=== PATIENT | male | born 1955 | race Caucasian/White ===

== ENCOUNTER 2018-10-25 14:12 | Observation (INO) | payer OTHER ==
[2018-10-25] MEDS ORDERED: methylPREDNISolone SOD SUCCI 125 MG/2 ML VIAL IV STA (14:14)
[2018-10-25] MEDS ORDERED: IPRATROPIUM-ALBUTEROL 3 ML NEB INHALATION STA (14:14)
--- NOTE | 2018-10-25 14:23 | ED ---
General Adult HPI - General Chief complaint: Shortness of Breath Stated complaint: Sob Time Seen by Provider: 10/25/18 14:14 Source: patient, EMS, RN notes reviewed Mode of arrival: EMS Limitations: no limitations - History of Present Illness Initial comments: Patient is a pleasant 63-year-old male presenting to the emergency Department with dyspnea. Symptoms have progressively the past several days. Patient is at [facility] for alcohol treatment. Patient has been without his oxygen for a few days. Patient does have dyspnea consistent with previous COPD. Patient does have occasional nonproductive cough. No fevers. No chest pain. No leg p ain or leg swelling. - Related Data Home Medications Medication Instructions Recorded Confirmed Acetaminophen [Tylenol 8 Hour] 650 mg PO Q4H PRN 10/25/18 10/25/18 Atorvastatin [Lipitor] 20 mg PO DAILY 10/25/18 10/25/18 Chlorpheniramine Maleate 4 mg PO Q4H PRN 10/25/18 10/25/18 [Chlor-Trimeton] Escitalopram [Lexapro] 20 mg PO DAILY 10/25/18 10/25/18 Folic Acid 1 mg PO DAILY 10/25/18 10/25/18 Ibuprofen [Motrin] 600 mg PO Q6H PRN 10/25/18 10/25/18 Loperamide [Imodium] 4 mg PO QID PRN 10/25/18 10/25/18 Magnesium Oxide [Mag-Ox] 400 mg PO DAILY 10/25/18 10/25/18 Metoprolol Succinate [Toprol Xl] 100 mg PO BID 10/25/18 10/25/18 Multivitamins, Thera [Multivitamin 1 tab PO DAILY 10/25/18 10/25/18 (formulary)] Ondansetron HCl [Zofran] 8 mg PO Q6H PRN 10/25/18 10/25/18 Ondansetron [Zofran] 4 mg IM Q6H PRN 10/25/18 10/25/18 Thiamine [Vitamin B-1] 100 mg PO DAILY 10/25/18 10/25/18 Thiamine [Vitamin B-1] 100 mg PO DAILY 10/25/18 10/25/18 Tigan 200mg 200 mg IM Q6H PRN 10/25/18 10/25/18 Tigan 300mg Supp 300 mg RECTAL Q6H PRN 10/25/18 10/25/18 Trimethobenzamide [Tigan] 300 mg PO Q6H PRN 10/25/18 10/25/18 cloNIDine HCL [Catapres] 0.2 mg PO TID 10/25/18 10/25/18 traZODone HCL [Desyrel] 50 - 150 mg PO HS 10/25/18 10/25/18 Allergies Allergy/AdvReac Type Severity Reaction Status Date / Time prednisone Allergy Unknown Verified 10/25/18 14:40 Review of Systems ROS Statement: Those systems with pertinent positive or pertinent negative responses have been documented in the HPI. ROS Other: All systems not noted in ROS Statement are negative. Constitutional: Denies: fever Eyes: Denies: eye pain ENT: Denies: ear pain Respiratory: Reports: as per HPI, cough, dyspnea Cardiovascular: Denies: chest pain Endocrine: Denies: fatigue Gastrointestinal: Denies: abdominal pain Genitourinary: Denies: dysuria Musculoskeletal: Denies: back pain Skin: Denies: rash Neurological: Denies: weakness Past Medical History Past Medical History: COPD, Hypertension History of Any Multi-Drug Resistant Organisms: None Reported Past Surgical History: No Surgical Hx Reported Past Psychological History: No Psychological Hx Reported Smoking Status: Current every day smoker Past Alcohol Use History: Daily Past Drug Use History: None Reported General Exam Limitations: no limitations General appearance: alert, in distress (Mild distress) Head exam: Present: normocephalic Eye exam: Present: normal appearance, PERRL Neck exam: Present: normal inspection Respiratory exam: Present: respiratory distress, accessory muscle use, decreased breath sounds Cardiovascular Exam: Present: regular rate, normal rhythm GI/Abdominal exam: Present: soft. Absent: tenderness Extremities exam: Present: normal inspection. Absent: pedal edema, calf tenderness Neurological exam: Present: alert Psychiatric exam: Present: normal affect, normal mood Skin exam: Present: normal color Course Vital Signs 10/25/18 10/25/18 10/25/18 14:16 14:18 14:33 Temperature 98.9 F Pulse Rate 97 96 Respiratory 26 H 24 Rate Blood Pressure 142/89 O2 Sat by Pulse 100 Oximetry 10/25/18 14:35 Temperature Pulse Rate 96 Respiratory Rate Blood Pressure O2 Sat by Pulse Oximetry - Reevaluation(s) Reevaluation #1: 10/25/18 15:01 Patient does meet sepsis criteria diagnosed at 1500. Blood culture and lactic acid and IV antibiotics ordered. EKG Findings - EKG Comments: EKG Findings:: Normal sinus rhythm 95. TN 126. QRS 88. QT 384. QTC 42. Normal axis. Normal QRS. No acute ST change. Medical Decision Making - Medical Decision Making Patient reevaluated and significantly improved with BiPAP. Patient updated on results and plan. Case was discussed in detail with Dr. Candelaria, covering for hospital call, who will admit. - Lab Data Result diagrams: 10/25/18 14:25 10/25/18 14:25 Lab Results 10/25/18 10/25/18 10/25/18 Range/Units 14:25 14:25 14:25 WBC 16.1 H (3.8-10.6) k/uL RBC 4.00 L (4.30-5.90) m/uL Hgb 12.5 L (13.0-17.5) gm/dL Hct 38.3 L (39.0-53.0) % MCV 95.9 (80.0-100.0) fL MCH 31.3 (25.0-35.0) pg MCHC 32.6 (31.0-37.0) g/dL RDW 14.3 (11.5-15.5) % Plt Count 180 (150-450) k/uL Neutrophils % 88 % Lymphocytes % 5 % Monocytes % 5 % Eosinophils % 2 % Basophils % 0 % Neutrophils # 14.1 H (1.3-7.7) k/uL Lymphocytes # 0.8 L (1.0-4.8) k/uL Monocytes # 0.8 (0-1.0) k/uL Eosinophils # 0.2 (0-0.7) k/uL Basophils # 0.0 (0-0.2) k/uL PT (9.0-12.0) sec INR (<1.2) APTT (22.0-30.0) sec Sodium 140 (137-145) mmol/L Potassium 3.2 L (3.5-5.1) mmol/L Chloride 104 (98-107) mmol/L Carbon Dioxide 24 (22-30) mmol/L Anion Gap 12 mmol/L BUN 9 (9-20) mg/dL Creatinine 0.82 (0.66-1.25) mg/dL Est GFR (CKD-EPI)AfAm >90 (>60 ml/min/1.73 sqM) Est GFR (CKD-EPI)NonAf >90 (>60 ml/min/1.73 sqM) Glucose 97 (74-99) mg/dL Calcium 8.9 (8.4-10.2) mg/dL Total Bilirubin 1.7 H (0.2-1.3) mg/dL AST 22 (17-59) U/L ALT 29 (21-72) U/L Alkaline Phosphatase 101 (38-126) U/L NT-Pro-B Natriuret Pep 5570 pg/mL Total Protein 5.7 L (6.3-8.2) g/dL Albumin 3.2 L (3.5-5.0) g/dL 10/25/18 Range/Units 14:25 WBC (3.8-10.6) k/uL RBC (4.30-5.90) m/uL Hgb (13.0-17.5) gm/dL Hct (39.0-53.0) % MCV (80.0-100.0) fL MCH (25.0-35.0) pg MCHC (31.0-37.0) g/dL RDW (11.5-15.5) % Plt Count (150-450) k/uL Neutrophils % % Lymphocytes % % Monocytes % % Eosinophils % % Basophils % % Neutrophils # (1.3-7.7) k/uL Lymphocytes # (1.0-4.8) k/uL Monocytes # (0-1.0) k/uL Eosinophils # (0-0.7) k/uL Basophils # (0-0.2) k/uL PT 13.0 H (9.0-12.0) sec INR 1.3 H (<1.2) APTT 31.9 H (22.0-30.0) sec Sodium (137-145) mmol/L Potassium (3.5-5.1) mmol/L Chloride (98-107) mmol/L Carbon Dioxide (22-30) mmol/L Anion Gap mmol/L BUN (9-20) mg/dL Creatinine (0.66-1.25) mg/dL Est GFR (CKD-EPI)AfAm (>60 ml/min/1.73 sqM) Est GFR (CKD-EPI)NonAf (>60 ml/min/1.73 sqM) Glucose (74-99) mg/dL Calcium (8.4-10.2) mg/dL Total Bilirubin (0.2-1.3) mg/dL AST (17-59) U/L ALT (21-72) U/L Alkaline Phosphatase (38-126) U/L NT-Pro-B Natriuret Pep pg/mL Total Protein (6.3-8.2) g/dL Albumin (3.5-5.0) g/dL - Radiology Data Radiology results: image reviewed (X-ray shows left lower lobe infiltrate. Small left effusion. Right upper lobe pulmonary mass.) Critical Care Time Critical Care Time: Yes Total Critical Care Time: 33 Disposition Clinical Impression: Acute exacerbation of chronic obstructive airways disease, Pneumonia, Sepsis Disposition: ADMITTED IP TO THIS HOSP Condition: Serious Is patient prescribed a controlled substance at d/c from ED?: No Referrals: None,Stated [Primary Care Provider] - 1-2 days Decision Time: 15:02
--- NOTE | 2018-10-25 14:37 | XR ---
EXAMINATION TYPE: XR chest 1V portable DATE OF EXAM: 10/25/2018 COMPARISON: NONE HISTORY: Shortness of breath TECHNIQUE: Single frontal view of the chest is obtained. FINDINGS: Hyperinflation suggests COPD. There is left-sided infiltrate and pleural effusion. Healing left sided lower rib cage fractures are noted. There is a nodule in the right upper lobe and perihil ar region measuring 1.4 cm. Atherosclerotic change aorta. Irregular density left upper lobe noted pablo aterally with pleural-based thickening. IMPRESSION: 1. COPD with left lower lobe infiltrate and small effusion correlate for pneumonia. 2. Suspicion of a 1.4 cm right upper lobe pulmonary mass recommend CT chest.
[2018-10-25 14:38] LABS: Basophils % (A) 0 %; Eosinophils # (A) 0.2 k/uL (0-0.7); Eosinophils % (A) 2 %; HCT 38.3 % (39.0-53.0); HGB 12.5 gm/dL (13.0-17.5); Lymphocytes # (A) 0.8 k/uL (1.0-4.8); Lymphocytes % (A) 5 %; MCH 31.3 pg (25.0-35.0); MCHC 32.6 g/dL (31.0-37.0); MCV 95.9 fL (80.0-100.0); Mean Platelet Volume 7.2; Monocytes # (A) 0.8 k/uL (0-1.0); Monocytes % (A) 5 %; Neutrophils # (A) 14.1 k/uL (1.3-7.7); Neutrophils % (A) 88 %; Platelet Count 180 k/uL (150-450); RDW 14.3 % (11.5-15.5); WBC 16.1 k/uL (3.8-10.6)
[2018-10-25 14:44] LABS: ALT 29 U/L (21-72); AST 22 U/L (17-59); African American GFR (CKD) >90 (>60 ml/min/1.73 sqM); Albumin 3.2 g/dL (3.5-5.0); Alkaline Phosphatase 101 U/L (38-126); Anion Gap 12 mmol/L; Blood Urea Nitrogen 9 mg/dL (9-20); Calcium 8.9 mg/dL (8.4-10.2); Carbon Dioxide 24 mmol/L (22-30); Chloride 104 mmol/L (98-107); Glucose 97 mg/dL (74-99); INR 1.3 (<1.2); Partial Thromboplastin Time 31.9 sec (22.0-30.0); Sodium 140 mmol/L (137-145); Total Bilirubin 1.7 mg/dL (0.2-1.3); Total Protein 5.7 g/dL (6.3-8.2)
[2018-10-25 14:50] LABS: Potassium 3.2 mmol/L (3.5-5.1)
[2018-10-25] MEDS ORDERED: PNEUMONIA PROTOCOL UTILIZED 1 EACH MISC PO PRN (15:03)
[2018-10-25] MEDS ORDERED: LEVOFLOXACIN 750MG-D5W PMX 750 MG in DEXTROSE/WATER 1 150ML.BAG IVPB STA (15:03)
[2018-10-25] MEDS ORDERED: IPRATROPIUM-ALBUTEROL 3 ML NEB INHALATION PRN (15:03)
[2018-10-25] MEDS ORDERED: PIPERACILLIN-TAZOBACTAM 3.375 GM in SODIUM CHLORIDE 0.9% 100 ML IVPB STA (15:03)
[2018-10-25] MEDS: SODIUM CHLORIDE 0.9% 1,000 ML IV SCH (15:37)
[2018-10-25] MEDS: IPRATROPIUM-ALBUTEROL 3 ML NEB INHALATION SCH ×2 (15:41→18:58)
[2018-10-25 17:43] VITALS: BMI 23.7
[2018-10-25] MEDS: methylPREDNISolone SOD SUCCI 125 MG/2 ML VIAL IV SCH ×2 (18:16→23:38)
[2018-10-25] MEDS ORDERED: ACETAMINOPHEN TAB 325 MG TAB PO PRN (18:57)
[2018-10-25] MEDS ORDERED: ONDANSETRON 4 MG TAB PO PRN (18:57)
[2018-10-25] MEDS ORDERED: traZODone HCL 50 MG TAB PO SCH (21:00)
[2018-10-25] MEDS: cloNIDine HCL 0.2 MG TAB PO SCH (21:17)
[2018-10-25] MEDS: METOPROLOL SUCCINATE (ER) 100 MG TAB.ER.24H PO SCH (21:17)
[2018-10-25] MEDS ORDERED: IBUPROFEN 600 MG TAB PO PRN (21:58)
[2018-10-25] MEDS ORDERED: TIGAN RECTAL PRN (21:58)
[2018-10-25] MEDS ORDERED: LOPERAMIDE 2 MG CAP PO PRN (21:58)
[2018-10-25] MEDS ORDERED: diphenhydrAMINE 25 MG CAP PO PRN (23:00)
[2018-10-25] MEDS: HEPARIN SODIUM,PORCINE 5,000 UNIT/ML 1 ML VIAL SQ SCH (23:39)
[2018-10-25] MEDS: PIPERACILLIN-TAZOBACTAM 3.375 GM in SODIUM CHLORIDE 0.9% 100 ML IVPB SCH (23:39)
[2018-10-26] MEDS ORDERED: TRIMETHOBENZAMIDE 300 MG CAP PO PRN
[2018-10-26] MEDS ORDERED: TRIMETHOBENZAMIDE 100 MG/ML 2 ML VIAL IM PRN
[2018-10-26] MEDS: SODIUM CHLORIDE 0.9% 1,000 ML IV SCH (01:26)
[2018-10-26] MEDS: methylPREDNISolone SOD SUCCI 125 MG/2 ML VIAL IV SCH (05:33)
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
[2018-10-26] MEDS: IPRATROPIUM-ALBUTEROL 3 ML NEB INHALATION SCH ×2 (07:20→12:26)
[2018-10-26 07:30] LABS: Glucose,Whole Blood 197 mg/dL (75-99)
[2018-10-26 07:32] VITALS: BP 115/72; RESP 16; TEMP 97.7
[2018-10-26] MEDS: INSULIN ASPART (NovoLOG) 100 UNIT/ML VIAL SQ SCH ×2 (07:51→12:30)
[2018-10-26] MEDS: PIPERACILLIN-TAZOBACTAM 3.375 GM in SODIUM CHLORIDE 0.9% 100 ML IVPB SCH (07:52)
[2018-10-26] MEDS: HEPARIN SODIUM,PORCINE 5,000 UNIT/ML 1 ML VIAL SQ SCH (08:10)
[2018-10-26] MEDS: cloNIDine HCL 0.2 MG TAB PO SCH (08:10)
[2018-10-26] MEDS: METOPROLOL SUCCINATE (ER) 100 MG TAB.ER.24H PO SCH (08:11)
[2018-10-26] MEDS ORDERED: MAGNESIUM OXIDE 400 MG TAB PO SCH (09:00)
[2018-10-26] MEDS ORDERED: MULTIVITAMINS, THERA 1 EACH TAB PO SCH (09:00)
[2018-10-26] MEDS ORDERED: THIAMINE 100 MG TAB PO SCH ×2 (09:00)
[2018-10-26] MEDS ORDERED: FOLIC ACID 1 MG TAB PO SCH (09:00)
[2018-10-26] MEDS ORDERED: ESCITALOPRAM 20 MG TAB PO SCH (09:00)
[2018-10-26] MEDS ORDERED: ATORVASTATIN 20 MG TAB PO SCH (09:00)
--- NOTE | 2018-10-26 09:40 | XR ---
EXAMINATION TYPE: XR chest 2V DATE OF EXAM: 10/26/2018 COMPARISON: Prior chest x-ray 10/25/2018 HISTORY: Pneumonia TECHNIQUE: Frontal and lateral views of the chest are obtained. FINDINGS: Pleural parenchymal changes are stable compared to prior exam. Volume loss, probable scarr ing again noted in the left lung. There is abnormal density at the left lung base as well as along th e superolateral pleura on the left. Nodular density persists in the right midlung. Prominence of the pulmonary artery could be due to pulmonary artery hypertension. There is blunting the right costophre jimena angle. Tethering of the left pulmonary artery is noted. Heart is small. There is flattening the h emidiaphragms. IMPRESSION: Findings are similar to prior exam. Emphysema. Correlate for possible basilar pneumonia. Right lower lobe lung nodule.
--- NOTE | 2018-10-26 09:59 | CT ---
EXAMINATION TYPE: CT chest wo con DATE OF EXAM: 10/26/2018 COMPARISON: Chest x-ray 10/25/2018 HISTORY: Pneumonia, lung mass CT DLP: 298.6 mGycm, Automated exposure control for dose reduction was used. CONTRAST: None TECHNIQUE: Axial images were obtained at 5 mm thick sections. Reconstructed images ar e reviewed on the computer in the coronal plane. FINDINGS: Portion of the thyroid visualized is normal. There is a consolidation or thickening in the posterior left apex measuring approximately 3.2 x 4.9 c m. Minimal left pleural effusion may be present. There is a small density within the posterior right upper lung field measuring 0.8 x 1.4 cm. Series 2 04 image 14. There is an area of increased density within the periphery of the left midlung measuring 6.4 x 2.4 cm. Series 204 image 19. The areas of scarring within extensive emphysematous changes within the mid lungs bilaterally. There is a 2.2 x 1.6 cm rounded density in the posterior right lower lobe. Series 204 image 42. Some pulmonary fibrosis may be in the posterior lung base. Some consolidation is not excluded within the p osterior left lung base. No enlarged mediastinal or hilar adenopathy is evident. The ascending aorta diameter at the level o f the main pulmonary artery is 3.7 cm. The main pulmonary artery diameter at the bifurcation is 3.0 cm. Mild coronary artery calcification is present. Limited CT sections are obtained through the upper abdomen. At the tail of the pancreas there is a bi lobed slightly hypodense area measuring 6.5 x 4.4 cm. Cyst, pseudocyst, neoplasm are within the diffe rential. Additional workup with contrast CT abdomen and pancreas protocol is recommended. IMPRESSIONS: 1. 2.2 x 1.6 cm posterior peripheral right lower lobe lung nodule. 2. Additional areas of consolidation and/or densities within advanced emphysematous changes. Some und erlying pulmonary fibrosis may also be present. 3. Large bilobed mass within the tail of the pancreas. Neoplasm is not excluded. Additional workup wi th contrast CT abdomen is recommended. A [place] level critical message alert has been initiated for Chloe Contreras via the [employer] System on 10/26/2018 9:56 AM. This message alert has been sent to Chloe Contreras via the p references provided by the clinician for the receipt of Radiology Critical Findings. [place] [id number].
[2018-10-26 11:53] LABS: Glucose,Whole Blood 189 mg/dL (75-99)
--- NOTE | 2018-10-26 11:56 | CONS ---
CONSULTATION PULMONARY/CRITICAL CARE CONSULTATION DATE OF CONSULTATION: October 26, 2018 This is a 63-year-old male whom we were asked to see because of shortness of breath. The patient apparently presents to the emergency room with complaints of shortness of breath. Apparently it had been going on for a couple days prior to admission. The patient was apparently a resident at [facility] for alcohol treatment. He apparently has been without his oxygen for a few days. The patient complains of shortness of breath. A bit of a cough. No phlegm production. Some tightness in his chest. No fever or chills. No chest pain or chest discomfort. The patient apparently does see a upholsterer limousine and hearse in the [facility]. He mentioned his name but I do not recognize the name. The patient states that the doctor has diagnosed him with underlying COPD. When I asked about severity, he is not really able to know how to answer me. He does use oxygen on a regular basis. But again, was not able to tell me how bad he was based on conversations with his upholsterer limousine and hearse. Anyway, currently, the patient does not look bad. He is lying in bed. He has got oxygen in place. Does not appear to have any shortness of breath. Certainly no conversational dyspnea. No use of accessory muscles. No audible wheezing. HOME MEDICATIONS: Home medication include Tylenol, Lipitor, Chlor-Trimeton, Lexapro, folic acid, Motrin, Imodium, Mag-Ox, metoprolol, multivitamins, Zofran, vitamin B1, Tigan, Catapres, Desyrel and albuterol and a nebulizer machine. ALLERGIES: Allergies apparently are PREDNISONE, although he can take IV steroids quite well. He states the PREDNISONE causes mental status changes. PAST MEDICAL HISTORY: His past medical history is positive for chronic pain syndrome, COPD, hypertension, hyperlipidemia, environmental allergies, anxiety and depression, and DJD. SURGICAL HISTORY: Surgical history is negative. SOCIAL HISTORY: Social history is positive for ongoing tobacco use. He smokes on a daily basis. He also drinks alcohol daily. Illicit drug use is denied. FAMILY HISTORY: The patient was not able to tell me much about family history. He suspects that his family history is rather benign in that his mother and father really had no major medical issues. REVIEW OF SYSTEMS: CONSTITUTIONAL: Negative NEUROLOGIC: Negative. HEENT: Negative. CARDIOVASCULAR: Negative. PULMONARY: Shortness of breath, cough, mostly nonproductive, chest congestion, wheezing. GI: Negative. : Negative. RHEUMATOLOGIC: Negative. IMMUNOLOGIC: Negative. ENDOCRINOLOGIC: Negative. DERMATOLOGIC: Negative. PHYSICAL EXAMINATION: VITAL SIGNS: Current vital signs are reviewed. Temperature is 97.7, heart rate 78, respiratory rate 16, blood pressure 115/72, mean 86, 3 L saturation 94%. Appears in no acute distress. HEENT: Examination is grossly unremarkable. Mucous membranes are moist. Nasal O2 noted. NECK: Supple. Full range of motion. No adenopathy. Neck veins are flat. CARDIOVASCULAR: Examination reveals regular rhythm and rate. Heart rate in the mid 80s. S1, S2 normal. No S3, S4, or murmur. LUNGS: Reveal expiratory rhonchi. There are some expiratory wheezes. There is prolongation on forced maneuver. Breath sounds equal bilaterally, but diminished throughout. No crackles. ABDOMEN: Soft. Bowel sounds are heard. EXTREMITIES: Are intact. No cyanosis, clubbing, or edema. SKIN: Without rash. NEUROLOGIC: Examination is nonfocal. He does move all 4 extremities well. LABS: Labs are reviewed. Today's glucose is 197. Liver function test shows a bilirubin of 1.7. Total protein 5.7. Albumin 3.2. Sodium 140, potassium 3.2, chloride 104, CO2 is 24. Anion gap is 12. BUN and creatinine were 9 and 0.82. PT 13, INR 1.3, PTT 31.9. White count 16.1, hemoglobin 12.5. Platelet count normal. X-RAY: Chest x-ray shows some atelectasis or infiltrate in the left lower lobe. In addition, the patient has a lesion in the right upper lobe, 1.4 cm in size. The patient stated that he has had this for more than 20 years or so. That may very well be true. Chest x-ray shows a lesion in the right mid lung and some infiltrate in the left lower lobe. Chest x-ray shows mostly chronic changes, some infiltrate in the left lower lobe and this lesion in the right mid lung. CT scan shows some chronic changes pleurally based in the left mid lung and a pleural- based lesion on the right side. Also, there is some fibrotic changes and honeycomb type changes in the left base. Microbiology is negative. In addition, CT scan shows a bilobed mass within the tail of the pancreas and a CT scan with contrast of the abdomen was recommended. The lesion in the right lung is 2.2 x 1.6 cm in size. Again, the patient states that the lesion has been there for some time, well known to him and well known to his upholsterer limousine and hearse. Medications are reviewed. ASSESSMENT: 1. Chronic obstructive pulmonary disease exacerbation complicated by purulent tracheobronchitis and possible bronchopneumonia left lower lobe. 2. Suspicious mass, right mid lung/right lower lobe, apparently chronic and unchanged. 3. Large bilobed mass within the tail of the pancreas and a CT scan was recommended. 4. History of chronic obstructive pulmonary disease and chronic obstructive pulmonary disease exacerbation. 5. History of chronic tobacco abuse. 6. History of hyperlipidemia. 7. History of hypertension. PLAN: The patient's medications are reviewed. Additional recommendations and suggestions are forthcoming. If in fact the lesion is old, follow up in the office with prior CAT scans would be beneficial. From the pulmonary standpoint, we will adjust the medications accordingly. He should be on short-acting beta agonist, short-acting muscarinic antagonist, long-acting beta agonist, inhaled corticosteroids, and systemic corticosteroids. Oral antibiotic will be fine. Again medications are reviewed. Prognosis is guarded. MMODL / IJN: [id number] /
[2018-10-26] MEDS ORDERED: methylPREDNISolone SOD SUCCI 40 MG/ML 1 ML VIAL IV SCH (12:00)
[2018-10-26 12:28] VITALS: PULSE 88
[2018-10-26] MEDS ORDERED: LEVOFLOXACIN 750MG-D5W PMX 750 MG in DEXTROSE/WATER 1 150ML.BAG IVPB SCH (15:00)
[2018-10-26] MEDS ORDERED: SYMBICORT 160-4.5 MCG INHALER INHALATION SCH (20:00)
[2018-10-26] MEDS ORDERED: AMOXIC-POT CLAV 875-125MG 1 EACH TAB PO SCH (21:00)
--- NOTE | 2018-10-27 01:50 | DS ---
DISCHARGE SUMMARY DATE OF SERVICE: 10/26/2018. FINAL DIAGNOSES: 1. Acute left lower pneumonia possibly gram-negative with possible sepsis and acute hypoxic respiratory failure present on admission. 2. Chronic obstructive pulmonary disease acute exacerbation. 3. Hypokalemia. 4. History of ETOH. 5. History of nicotine dependence. 6. Increased WBC. 7. Anemia of chronic disease. 8. Hypertension. 9. History of pneumonia. 10.History of anxiety, depression. 11.2.2 x 1.6 cm posterior peripheral right lower lobe lung nodule. 12.Post underlying pulmonary fibrosis. 13.Large bilobed mass in the left tail of the pancreas. DISCHARGE DISPOSITION: The patient being discharged in stable condition with guarded prognosis. Patient transferred to [facility] in stable condition with guarded prognosis. Total time taken was 35 minutes. HISTORY OF PRESENT ILLNESS: This 63-year-old gentleman with a past medical history of multiple medical problems was admitted with acute left lower pneumonia with possible sepsis and acute hypoxic respiratory failure. The patient was given BiPAP. Initially, patient was treated with intensive bronchodilators, antibiotics. Patient improved significantly and the patient to be transferred to [facility] to insurance reasons. CT scan showed multiple findings recommend the patient follow up in the outpatient setting. PHYSICAL EXAMINATION: On exam, vitals are stable. Cardiovascular: S1, S2. Respirations: A few scattered rhonchi. ABDOMEN: Soft. NERVOUS SYSTEM: No focal deficits. DISCHARGE ADVICE AND MEDICATIONS: 1. Diet is cardiac diet. 2. Activity limites until followup. MEDICATIONS: 1. Clonidine 0.2 p.o. t.i.d. 2. Chlorpheniramine maleate. 3. Desyrel 50 - 150 mg p.o. q.h.s. 4. Folic acid 1 mg p.o. daily. 5. Imodium 4 mg q.i.d. p.r.n. 6. Lexapro 20 mg p.o. daily. 7. Lipitor 20 mg p.o. daily. 8. Magnesium oxide 400 mg p.o. daily. 9. Motrin 600 mg q.6h p.r.n. 10.Multivitamins 1 p.o. daily. 11.Tigan 300 mg q.6h p.r.n. 12.Toprol-XL 100 mg p.o. b.i.d. 13.Tylenol p.r.n. 14.Vitamin B1 100 mg p.o. daily. 15.Zofran 4 mg p.r.n. 16.Augmentin 875 mg 1 p.o. b.i.d. 17.DuoNeb q.i.d. and p.r.n. 18.NovoLog scale. 19.Symbicort 160/4.5 two puffs b.i.d. MMODL / IJN: [id number] /
== END 2018-10-26 14:10 | disposition home or self-care (01) ==
LOC: EC 14:12 → UNDOADMIN 15:03 → 4SSUR 15:03 → INTOOBSV 15:03 → UNDODISIN 10-26 14:10
PROVIDERS: ADMIT Internal Medicine; ATTEND Internal Medicine
PROC: 5A09357 Assistance with Respiratory Ventilation, Less than 24 Consecutive Hours, Continuous Positive Airway Pressure (ICD-10-PCS; principal; 2018-10-25)
DX: J18.1 Lobar pneumonia, unspecified organism (principal); J96.01 Acute respiratory failure with hypoxia; J43.9 Emphysema, unspecified; D63.8 Anemia in other chronic diseases classified elsewhere; E78.5 Hyperlipidemia, unspecified; E87.6 Hypokalemia; G89.4 Chronic pain syndrome; I10 Essential (primary) hypertension; J84.10 Pulmonary fibrosis, unspecified; F10.10 Alcohol abuse, uncomplicated; R91.1 Solitary pulmonary nodule; K86.89 Other specified diseases of pancreas; F41.9 Anxiety disorder, unspecified; F32.9 Major depressive disorder, single episode, unspecified; M19.90 Unspecified osteoarthritis, unspecified site; F17.200 Nicotine dependence, unspecified, uncomplicated; Z79.899 Other long term (current) drug therapy; Z87.01 Personal history of pneumonia (recurrent)
CPT/HCPCS: 96376 ×2; 96366 ×2; 96372 ×2; 96368; 96365; 96375; 99291; 36415; 94660; 94640 ×4; 93005; 83880; 80053; 83605; 85025; 85610; 85730; 87040; 71045; 71046; 71250; G0378 ×2; J2543 ×2; J1644 ×2; J2920; J2930 ×2; J1956